=== PATIENT | female | born 1965 | race Caucasian/White ===

== ENCOUNTER 2016-11-01 09:10 | Outpatient (CLI) | payer OTHER ==
[2016-07-30 20:04] VITALS: BP 118/84
[2016-11-01 10:01] LABS: eGFR (African) > 60; eGFR (Non-African) > 60
== END 2016-11-01 09:11 ==
LOC: LAB 09:10
PROVIDERS: ATTEND Family Medicine
DX: E78.2 Mixed hyperlipidemia (principal); E03.9 Hypothyroidism, unspecified
CPT/HCPCS: 36415; 80053; 80061; 84443

== ENCOUNTER 2017-05-02 10:34 | Outpatient (CLI) | payer OTHER ==
[2016-07-30 20:04] VITALS: BP 118/84
[2017-05-02 11:08] LABS: BASOPHILS % 1.1 (0.0-1.5); MEAN CORPUSCULAR HEMOGLOBIN 30.4 pg (28.0-34.0); MEAN CORPUSCULAR VOLUME 86.3 fl (80.0-100.0)
[2017-05-02 11:44] LABS: EOSINOPHILS % 0.7 % (0.0-6.8); NEUTROPHILS # 3.1 # k/uL (1.4-7.7)
[2017-05-02 11:52] LABS: eGFR (African) > 60; eGFR (Non-African) > 60
== END 2017-05-02 10:35 ==
LOC: LAB 10:34
PROVIDERS: ATTEND Family Medicine
DX: R10.84 Generalized abdominal pain (principal)
CPT/HCPCS: 36415; 80053; 85025

== ENCOUNTER 2017-05-05 07:20 | Outpatient (CLI) | payer OTHER ==
[2016-07-30 20:04] VITALS: BP 118/84
--- NOTE | 2017-05-05 09:45 | Diagnostic Imaging Report ---
ASHISH MANZANO - TOYIN [facility] [address] [facility] [address] [address] Report Submission Date: May 05, 2017 9:28:02 AM CDT Patient Study Name: SOLOMON SANCHEZ Date: May 05, 2017 9:02:43 AM CDT Modality Type: CT\SR Gender: F Description: CT ABD & PELVIS W/ CON : 61 Institution: [facility] Physician: ASHISH MANZANO - TOYIN CT ABD & PELVIS W/ CON History: Generalized abdominal pain and vomiting Technique: Transaxial computed tomographic images of the abdomen and pelvis were obtained following administration of intravenous contrast according to standard protocol. Findings: The lung bases are clear. Heart size normal. Small hiatal hernia is present. The liver is normal in density. The gallbladder is absent. The pancreas spleen adrenals and bilateral kidneys are normal. No bowel wall thickening or dilation present. The appendix is absent. Vascular structures are normal. No adenopathy present. The bladder normal. There is no free fluid. The osseous structures are unremarkable. Impression: 1. No bowel wall thickening or dilation. 2. Status post cholecystectomy and appendectomy. 3. Small hiatal hernia. Electronically signed on May 05, 2017 9:28:02 AM CDT by: Jonh EVANS
== END 2017-05-05 07:21 ==
LOC: RAD 07:20
PROVIDERS: ATTEND Family Medicine
DX: R10.84 Generalized abdominal pain (principal)
CPT/HCPCS: 74177; Q9966

== ENCOUNTER 2017-06-12 15:30 | Emergency (ER) | payer OTHER ==
--- NOTE | 2017-06-12 15:35 | ED Physician Documentation ---
Upper Respiratory Symptoms - HISTORIAN Historian: patient - HPI Stated Complaint: cough Chief Complaint: Cough/ Upper Respiratory Onset: days ago (4) Duration: constant Context: denies: recent foreign travel, insect bite(s), tick(s), multiple patients Severity: mild Associated Symptoms: fever, chills, sweating, earache, chest pain (with cough ) Worsened by Deep Breath: Yes Further Comments: no - ROS CONST/EYES: weakness CVS/RESP: none LYMPH: denies: rash NEURO/PSYCH: denies: fainting, dizziness MS/SKIN: denies: joint pain - PAST HX Lung Disease: other (Depression, thyroid, GERD, ) PE Risk Factors: none Other History: other Surgeries/Procedures: other (Hysterectomy ) Immunizations: referred to PCP Allergies/Adverse Reactions: Allergies Allergy/AdvReac Type Severity Reaction Status Date / Time Penicillins Allergy Unknown Verified 07/30/16 20:20 Home Medications: Ambulatory Orders Medication Instructions Recorded Albuterol Sulfate [Ventolin HFN] 2.5 mg NEB QID PRN #30 ampul.neb 06/12/17 Duloxetine HCl [Duloxetine HCl] 20 mg PO DAILY 06/12/17 Escitalopram Oxalate [Lexapro] 20 mg PO DAILY 06/12/17 Estradiol [Estradiol] 2 mg PO DAILY 06/12/17 Gemfibrozil [Lopid] 600 mg PO DAILY 06/12/17 Levothyroxine Sodium [Synthroid] 100 mcg PO 0700 06/12/17 - SOCIAL HX Smoking History: non-smoker Alcohol Use: none Drug Use: none - FAMILY HX Family History: none - VITAL SIGNS Vital Signs: Vital Signs Temp Pulse Resp BP Pulse Ox 98.9 F 78 16 120/66 99 06/12/17 15:30 06/12/17 17:55 06/12/17 17:55 06/12/17 17:55 06/12/17 17:55 - REVIEWED ASSESSMENTS Nursing Assessment Reviewed: Yes Vitals Reviewed: Yes Progress - Progress Progress: Discussed labs are normal CXR is normal Continue OTC meds She does not feel she needs RX for cough syrup or allergy meds She will continue her nebs ED Results Lab/Radiology - Lab Results Lab Results: Lab Results 06/12/17 06/12/17 15:58 15:58 WBC 8.40 K/ul K/ul (4.00-12.00) RBC 4.18 M/ul M/ul (3.90-5.20) Hgb 12.4 g/dL g/dL (12.0-16.0) Hct 37.3 % % (34.5-46.5) MCV 89.2 fl fl (80.0-100.0) MCH 29.6 pg pg (28.0-34.0) MCHC 33.1 g/dL g/dL (30.0-36.0) RDW 12.6 % % (11.3-14.3) Plt Count 356 K/mm3 K/mm3 (130-400) Neut % (Auto) 76.0 % % (39.0-79.0) Lymph % (Auto) 17.9 % % (16.0-50.0) [place] % (Auto) 4.0 % % (0.0-11.0) Eos % (Auto) 0.5 % % (0.0-6.8) Baso % (Auto) 0.4 (0.0-1.5) Neut # (Auto) 6.4 # k/uL # k/uL (1.4-7.7) Lymph # (Auto) 1.5 # k/uL # k/uL (0.6-4.0) [place] # (Auto) 0.3 # k/uL # k/uL (0.0-0.9) Eos # (Auto) 0.0 # k/uL # k/uL (0.0-0.6) Baso # (Auto) 0.0 # k/uL # k/uL (0.0-0.5) Reactive Lymphs % 1.2 % % (0.0-5.0) Reactive Lymphs # 0.1 # k/uL # k/uL (0.0-0.8) Sodium 135 mmol/L L mmol/L (136-145) Potassium 3.6 mmol/L mmol/L (3.5-5.1) Chloride 101 mmol/L mmol/L (98-107) Carbon Dioxide 27 mmol/L mmol/L (22-30) BUN 15 mg/dL mg/dL (7-17) Creatinine 1.10 mg/dL H mg/dL (0.52-1.04) Estimated Creat Clear 89 Est GFR ( Amer) > 60 (60 - ) Est GFR (Non-Af Amer) > 60 (60 - ) Glucose 89 mg/dL mg/dL (74-106) Calcium 8.7 mg/dL mg/dL (8.4-10.2) Total Bilirubin 0.3 mg/dL mg/dL (0.2-1.3) AST 16 U/L U/L (15-46) ALT 24 U/L U/L (13-69) Alkaline Phosphatase 81 U/L U/L (38-126) Total Protein 7.3 g/dL g/dL (6.3-8.2) Albumin 3.9 g/dL g/dL (3.5-5.0) - Radiology Radiology Impressions: Examination: PA and lateral chest. History: Evaluate lung ryder. Comparison exam: None provided Findings: PA lateral chest demonstrate a normal cardiac and mediastinal silhouette. No focal infiltrate. No blunting of the costophrenic margins. Osseous structures are appropriate for age. Impression: No acute pulmonary process. Electronically signed on Jun 12, 2017 4:47:46 PM MORGUE LIBRARIAN by: Loco Oglesby - Orders Orders: ED Orders Category Date Time Status Place IV Lock 1T Care 06/12/17 15:46 Active CHEST P.A.&LAT 2 VIEWS [RAD] Stat Exams 06/12/17 Completed CBC/PLATELET/DIFF Routine Lab 06/12/17 15:58 Completed CMP [CMP] Routine Lab 06/12/17 15:58 Completed INFLUENZA A&B Urgent Lab 06/12/17 15:46 Ordered Rapid Strep [GRP A STREP SCREEN] Urgent Lab 06/12/17 Ordered 0.9 % Sodium Chloride [Normal Saline] 1,000 ml Med 06/12/17 16:52 Discontinued IV Q1H Labs normal Slightly low NA Upper Respiratory Symptoms - EXAM General Appearance: no acute distress, alert EENT: eyes nml inspection, nml ENT inspection Respiratory: wheezes Abdomen: non-tender, nml bowel sounds CVS: reg rate & rhythm, heart sounds normal, equal pulses, no murmur Skin: color nml, no rash, warm,dry Extremities: non-tender Neuro/Psych: oriented x3, neuro intact, mood/affect nml Discharge Clincal Impression: URI (upper respiratory infection) Qualifiers: URI type: unspecified viral URI Qualified Code(s): J06.9 - Acute upper respiratory infection, unspecified Prescriptions: Albuterol Sulfate [Ventolin HFN] 2.5 mg NEB QID PRN #30 ampul.neb PRN Reason: Cough Referrals: Diamond Liz MD [Primary Care Provider] - 2 Days Condition: Stable Disposition: 01 HOME, SELF-CARE Decision to Admit: NO Date of Decison to Admit: 06/12/17 Decision Time: 17:46
[2017-06-12 16:37] LABS: eGFR (African) > 60; eGFR (Non-African) > 60
[2017-06-12 16:51] LABS: BASOPHILS % 0.4 (0.0-1.5); EOSINOPHILS % 0.5 % (0.0-6.8); MEAN CORPUSCULAR HEMOGLOBIN 29.6 pg (28.0-34.0); MEAN CORPUSCULAR VOLUME 89.2 fl (80.0-100.0); NEUTROPHILS # 6.4 # k/uL (1.4-7.7)
[2017-06-12] MEDS: 0.9 % SODIUM CHLORIDE 1,000 ML IV ONE (17:00)
--- NOTE | 2017-06-12 17:47 | Diagnostic Imaging Report ---
LEXII LOREDO [facility] [address] [facility] [address] [place], [place]. [address] Report Submission Date: Jun 12, 2017 4:47:46 PM CYTOTECHNOLOGIST/CYTOLOGY SUPERVISOR Patient Study Name: SOLOMON SANCHEZ Date: Jun 12, 2017 4:16:25 PM CYTOTECHNOLOGIST/CYTOLOGY SUPERVISOR Modality Type: CR Gender: F Description: CHEST : 61 Institution: [facility] Physician: LEXII LOREDO Examination: PA and lateral chest. History: Evaluate lung ryder. Comparison exam: None provided Findings: PA lateral chest demonstrate a normal cardiac and mediastinal silhouette. No focal infiltrate. No blunting of the costophrenic margins. Osseous structures are appropriate for age. Impression: No acute pulmonary process. Electronically signed on Jun 12, 2017 4:47:46 PM CYTOTECHNOLOGIST/CYTOLOGY SUPERVISOR by: Loco EVANS
[2017-06-12 17:56] VITALS: BP 120/66
== END 2017-06-12 17:55 | disposition home or self-care (01) ==
LOC: ED 15:30
DX: J06.9 Acute upper respiratory infection, unspecified (principal)
CPT/HCPCS: 71020; 80053; 85025; J7030; 87070; 87400; 87880; 96360; 99283; S1016

== ENCOUNTER 2017-12-18 04:06 | Emergency (ER) | payer OTHER ==
--- NOTE | 2017-12-18 04:20 | ED Physician Documentation ---
Fall - HISTORIAN Historian: patient - HPI Stated Complaint: fall Chief Complaint: Fall Onset: just prior to arrival Where: home Context: slipped (in the mud ) r: moderate Associated Symptoms:: no loss of consciousness Location of Pain/Injury: neck (fells she pulled her neck with the fall ), lower extremity (fell directly on both knees ) Injury to Right Extremity: knee Injury to Left Extremity: knee, ankle, foot Further Comments: yes (she reports she was going to check on her neighbors house in the rain and her foot slipped in the mud and she fell directely down on her knees. She states she had her left knee replaced and she is worried she "messed it up" . states he pain is 6 /10 and she has some pain in her right arm from where she had to use it to prop herself up and get up. She feels her neck is sore from the twisting movement of the fall. she did not injure her neck or head in the fall. Denies any loss of control of bowel or bladder left foot and ankle are sore from fall she is not sure if she hit this area when she had the fall or not. She has not had anything OTC for pain) - ROS CONST: no problems NEURO: denies: dizziness MS/SKIN/LYMPH: denies: weakness GI/: denies: problems urinating - PAST HX Past History: other (hyperlipidemia, depression, bladder, ) Immunizations: UTD Allergies/Adverse Reactions: Allergies Allergy/AdvReac Type Severity Reaction Status Date / Time Penicillins Allergy Unknown Verified 12/18/17 04:39 Home Medications: Ambulatory Orders Medication Instructions Recorded Albuterol Sulfate [Ventolin HFN] 2.5 mg NEB QID PRN #30 ampul.neb 06/12/17 Estradiol [Estradiol] 2 mg PO DAILY 06/12/17 Gemfibrozil [Lopid] 600 mg PO DAILY 06/12/17 Levothyroxine Sodium [Synthroid] 100 mcg PO 0700 06/12/17 - SOCIAL HX Smoking History: non-smoker Alcohol Use: none Drug Use: none - FAMILY HX Family History: none - VITAL SIGNS Vital Signs: Vital Signs Temp Pulse Resp BP Pulse Ox 120/66 06/12/17 17:55 - REVIEWED ASSESSMENTS Nursing Assessment Reviewed: Yes Vitals Reviewed: Yes Progress - Progress Progress: 0620: Patient aware waiting on xray results. Reports pain is improved DG Fall Physical Exam - Physical Exam General Appearance: no acute distress, alert Head: non-tender, no swelling, no obvious injury Neck: non-tender, painless ROM Eye: JORGE Resp/CVS: chest non-tender, breath sounds nml, no resp. distress, heart sounds nml Abdomen: soft, normal bowel sounds, no distension, non-tender Neuro: oriented x3, CN's nml as tested, sensation nml, motor nml, mood/affect nml, mixer operator nml, reflexes nml, mixer operator symmetrical Skin: color nml, no rash, warm, other (mud up entire pant leg ) Extremities: atraumatic, hips non-tender, no pedal edema, nml color/temp Joint: painful (both knees and left ankle/foot . No swelling. No bruise. Pulses + Cap refill + Normal ROM although painful ROM ) - Grady Coma Score Eyes Open: Spontaneous Speech: Oriented Motor: Obeys Commands Discharge Clincal Impression: Pain Fall Qualifiers: Encounter type: initial encounter Qualified Code(s): W19.XXXA - Unspecified fall, initial encounter Referrals: Diamond Liz MD [Primary Care Provider] - 2 Days Comments: 1. Ice/Rest 2. Follow up with PCP in 2-4 days for pain 3. Tramodol 50 mg Take 1 by mouth every 8 hours as needed for pain 4. Return to ER for increasing pain or swelling or other concerns Condition: Stable Disposition: 01 HOME, SELF-CARE Decision to Admit: NO Date of Decison to Admit: 12/18/17 Decision Time: 06:54
[2017-12-18] MEDS: KETOROLAC TROMETHAMINE 60 MG/2 ML VIAL IM ONE (04:39)
--- NOTE | 2017-12-18 06:55 | Diagnostic Imaging Report ---
LEXII LOREDO [facility] [address] [facility] [address] [place], [place]. [address] Report Submission Date: December 18, 2017 6:51:03 AM CDT Patient Study Name: SOLOMON SANCHEZ Date: December 18, 2017 5:59:02 AM CDT Modality Type: DX Gender: F Description: LOWER EXTREMITY : 61 Institution: [place] [facility] Physician: LEXII LOREDO Bilateral knees, AP, lateral and sunrise views History: Fpe the patient is status post left knee arthroplasty. The prosthesis appears in good position. There is no fracture, dislocation or abnormal bone destruction. Joint space narrowing is noted in the medial, lateral patellofemoral compartments of the right knee. There is spur formation at the right distal femur, proximal tibia and patella. Impression: Left knee arthroplasty. Right knee osteoarthritis. Electronically signed on December 18, 2017 6:51:03 AM CDT by: Bryce EVANS
--- NOTE | 2017-12-18 06:56 | Diagnostic Imaging Report ---
LEXII LOREDO [facility] [address] [facility] [address] [address] Report Submission Date: December 18, 2017 6:51:53 AM CDT Patient Study Name: SOLOMON SANCHEZ Date: December 18, 2017 6:02:20 AM CDT Modality Type: DX Gender: F Description: LOWER EXTREMITY : 61 Institution: [facility] Physician: LEXII LOREDO Left foot, 3 views History: Fall injury, pain Findings: No fracture, dislocation or abnormal bone production or destruction is identified. Plantar calcaneal spur is present. Impression: No acute abnormality. Electronically signed on December 18, 2017 6:51:53 AM CDT by: Bryce EVANS
--- NOTE | 2017-12-18 06:57 | Diagnostic Imaging Report ---
LEXII LOREDO [facility] [address] [facility] [address] [address] Report Submission Date: December 18, 2017 6:52:58 AM CDT Patient Study Name: SOLOMON SANCHEZ Date: December 18, 2017 5:08:10 AM CDT Modality Type: DX Gender: F Description: LOWER EXTREMITY : 61 Institution: [place] [facility] Physician: LEXII LOREDO Left ankle, 3 views History: Fall, injury, pain Findings: No fracture, dislocation or abnormal bone production or destruction is identified. Plantar calcaneal spur is present. Impression: No acute abnormality. Electronically signed on December 18, 2017 6:52:58 AM CDT by: Bryce EVANS
[2017-12-18 07:02] VITALS: BP 122/57
== END 2017-12-18 07:00 | disposition home or self-care (01) ==
LOC: ED 04:06
DX: M25.572 Pain in left ankle and joints of left foot (principal); M79.672 Pain in left foot; M54.2 Cervicalgia; M25.561 Pain in right knee; M25.562 Pain in left knee; W19.XXXA Unspecified fall, initial encounter; Y92.9 Unspecified place or not applicable; Y93.9 Activity, unspecified; Y99.9 Unspecified external cause status
CPT/HCPCS: 73562; 73610; 73630; J1885; 96372; 99284

== ENCOUNTER 2018-08-10 08:46 | Outpatient (CLI) | payer OTHER ==
[2018-08-10 09:17] LABS: eGFR (Non-African) > 60
== END 2018-08-10 09:05 ==
LOC: LAB 08:46
PROVIDERS: ATTEND Family Medicine
DX: E78.2 Mixed hyperlipidemia (principal); E03.9 Hypothyroidism, unspecified
CPT/HCPCS: 36415; 80053; 80061; 84443

== ENCOUNTER 2018-09-25 08:50 | Day surgery (SDC) | payer OTHER ==
[~2018-09-25 08:50] MED LIST: LACTATED RINGERS 1,000 ML IV.SOLN IV ONE; PROPOFOL 200 MG/20 ML VIAL IV ONE
--- NOTE | 2018-09-25 14:27 | GI Report ---
REFERRING PHYSICIAN: Dr. Diamond Liz WIND ENERGY ENGINEER: Quinn Richards MD PROCEDURE MEDICATION: Propofol as per anesthesia. INDICATIONS: Patient is 53 and referred for a screening. Her last colonoscopy was about 12 years ago. Some altered bowel habits. She has had a previous cholecystectomy, hysterectomy, appendectomy, and tubal ligations, so 4 abdominal surgeries. PROCEDURE PERFORMED: Colonoscopy. PROCEDURE: An Olympus video colonoscope was advanced to the rectum. An extremely atonic redundant colon. It took a lot of maneuvering to finally slowly get through the sigmoid colon and we did finally reach the cecum with some nurse compression. The cecum, ascending colon, and transverse colon with no obvious intraluminal lesions noted. At the descending colon, particularly in the sigmoid, a lot of redundancy, maybe external adhesions. No obvious intraluminal lesions were noted. Retroflexion of the rectum was normal. Patient tolerated the procedure well. FINDINGS: 1. A very atonic redundant colon. 2. History of multiple abdominal surgeries. RECOMMENDATIONS: 1. Would add Benefiber, Metamucil, or fiber supplement daily in the evening. It may help regulate stools better after a cholecystectomy. 2. Consider re-looking at her colon in 10 years, sooner if clinically indicated. cc: Dr. Diamond EVANS
== END 2018-09-25 12:55 | disposition home or self-care (01) ==
LOC: OPSURG 08:50
PROVIDERS: ATTEND Internal Medicine Gastroenterology
DX: Z12.11 Encounter for screening for malignant neoplasm of colon (principal); K59.8 Other specified functional intestinal disorders; Z98.890 Other specified postprocedural states
CPT/HCPCS: 45378; J2704; J7120; S1016

== ENCOUNTER 2018-09-28 15:55 | Emergency (ER) | payer OTHER ==
[2018-09-28] MEDS ORDERED: 0.9 % SODIUM CHLORIDE 1,000 ML IV ONE (16:26)
[2018-09-28] MEDS ORDERED: ONDANSETRON HCL/PF 4 MG/ 2ML VIAL IVP ONE ×2 (16:26→18:08)
[2018-09-28 16:40] LABS: BASOPHILS % 0.5 (0.0-1.5); MEAN CORPUSCULAR HEMOGLOBIN 30.2 pg (28.0-34.0); MONOCYTES % 3.8 % (0.0-11.0); NEUTROPHILS # 7.8 # k/uL (1.4-7.7)
[2018-09-28 16:46] LABS: eGFR (Non-African) > 60
--- NOTE | 2018-09-28 17:28 | ED Physician Documentation ---
Abdominal Pain - HISTORIAN Historian: patient - HPI Stated Complaint: abdominal pain Chief Complaint: Abdominal Pain Onset: days ago Timing: worse Context: denies: out of country travel, bad food, recent trauma Severity: severe Quality: pain Associated Symptoms: chills, nausea, vomiting. denies: bloody stools Exacerbated by: food Relieved by: nothing Further Comments: yes (53 year old female patient presents with complaints of generalized abdominal pain since Tuesday after her colonoscopy by Dr Sol at [facility]. Patient reports she cannot keep down fluids or solids today, c/o chills, BM today - formed. Report pain worse in Right lateral abdomen, states she cannot pass any gas.) - ROS CONST: no problems GI/: constipation CVS/RESP: none EYES/ENT: none MS/SKIN/LYMPH: none NEURO/PSYCH: none - SOCIAL HX Smoking History: non-smoker - FAMILY HX Family History: denies: none - PAST HX Past History: GERD, other (Hypothyroidism, HLD) Ischemic Bowel Risk Factors: none Other History: none Home Medications: Ambulatory Orders Medication Instructions Recorded Albuterol Sulfate [Ventolin HFN] 2.5 mg NEB QID PRN #30 ampul.neb 06/12/17 Estradiol 2 mg PO DAILY 06/12/17 Gemfibrozil [Lopid] 600 mg PO DAILY 06/12/17 Ondansetron HCl Rapdis [Zofran Odt] 4 mg PO Q6 PRN #30 tab 09/28/18 Allergies/Adverse Reactions: Allergies Allergy/AdvReac Type Severity Reaction Status Date / Time Penicillins Allergy Unknown Verified 09/28/18 16:27 codeine Allergy Verified 09/28/18 16:27 - VITAL SIGNS Vital Signs: Vital Signs Temp Pulse Resp BP Pulse Ox 98.5 F 67 20 146/61 97 09/28/18 15:55 09/28/18 18:36 09/28/18 18:36 09/28/18 18:36 09/28/18 18:36 - REVIEWED ASSESSMENTS Nursing Assessment Reviewed: Yes Vitals Reviewed: Yes Progress - Progress Progress: Colonoscopy report from Tuesday reviewed. ED Results Lab/Radiology - Lab Results Lab Results: Lab Results 09/28/18 09/28/18 16:10 16:10 WBC 10.70 K/ul K/ul (4.00-12.00) RBC 4.36 M/ul M/ul (3.90-5.20) Hgb 13.2 g/dL g/dL (12.0-16.0) Hct 39.3 % % (34.5-46.5) MCV 90.0 fl fl (80.0-100.0) MCH 30.2 pg pg (28.0-34.0) MCHC 33.5 g/dL g/dL (30.0-36.0) RDW 13.3 % % (11.3-14.3) Plt Count 343 K/mm3 K/mm3 (130-400) Neut % (Auto) 73.3 % % (39.0-79.0) Lymph % (Auto) 21.4 % % (16.0-50.0) [place] % (Auto) 3.8 % % (0.0-11.0) Eos % (Auto) 1.0 % % (0.0-6.8) Baso % (Auto) 0.5 (0.0-1.5) Neut # (Auto) 7.8 # k/uL H # k/uL (1.4-7.7) Lymph # (Auto) 2.3 # k/uL # k/uL (0.6-4.0) [place] # (Auto) 0.4 # k/uL # k/uL (0.0-0.9) Eos # (Auto) 0.1 # k/uL # k/uL (0.0-0.6) Baso # (Auto) 0.1 # k/uL # k/uL (0.0-0.5) Sodium 142 mmol/L mmol/L (136-145) Potassium 4.2 mmol/L mmol/L (3.5-5.1) Chloride 107 mmol/L mmol/L (98-107) Carbon Dioxide 22 mmol/L mmol/L (22-30) BUN 13 mg/dL mg/dL (7-17) Creatinine 0.87 mg/dL mg/dL (0.52-1.04) Estimated Creat Clear 113 Est GFR ( Amer) > 60 (60 - ) Est GFR (Non-Af Amer) > 60 (60 - ) Glucose 97 mg/dL mg/dL (74-106) Lactate 1.4 U/L U/L (0.7-2.1) Calcium 9.0 mg/dL mg/dL (8.4-10.2) Total Bilirubin 1.0 mg/dL mg/dL (0.2-1.3) AST 22 U/L U/L (15-46) ALT 20 U/L U/L (13-69) Alkaline Phosphatase 76 U/L U/L (38-126) Total Protein 7.4 g/dL g/dL (6.3-8.2) Albumin 4.6 g/dL g/dL (3.5-5.0) Lipase 68 U/L U/L (23-300) - Radiology Radiology Impressions: EXAMINATION: CT ABD PELVIS W/ CON HISTORY: CT A/P W/ CONTRAST, GENERALIZED ABD PAIN AND N/V THIS AM. PT STATES COLONOSCOPY DONE ON TUESDAY TECHNIQUE: CT of the abdomen and pelvis was performed with contrast according to standard protocol. COMPARISON: 05/05/2017 FINDINGS: The aorta is normal in course and caliber. The visible lung bases are clear. The heart size is normal without pericardial effusion. The liver enhances homogeneously. The gallbladder is absent. The intrahepatic and extrahepatic bile ducts are nondilated. The spleen enhances homogeneously without focal lesion. The pancreas and adrenal glands are normal. The kidneys enhance symmetrically. There is no evidence of renal calculus or hydronephrosis. The distal esophagus and stomach appear normal. There is diverticulosis. The small bowel and colon are normal in caliber without evidence of wall thickening or obstruction. The appendix is surgically absent. No free air or free fluid is identified within the abdomen. There is no abdominal lymphadenopathy. The urinary bladder is distended with fluid and appears normal. The uterus is absent. No free fluid is seen within the pelvis. Bone windows demonstrate no suspicious lytic or blastic lesions. The visible osseous structures are intact. IMPRESSION: No acute process identified in the abdomen or pelvis. Specifically there is no evidence of pneumoperitoneum to suggest colonic perforation in the setting of recent colonoscopy. Electronically signed on Sep 28, 2018 5:54:14 PM BODY ENGINEER by: Bandar Richardson - Orders Orders: ED Orders Category Date Time Status Continuous EKG monitoring Q30M Care 09/28/18 16:26 Active Continuous Pulse Oximetry Q30M Care 09/28/18 16:[address] IV Lock 1T Care 09/28/18 16:[address] ABD & PELVIS W/ CON Stat Exams 09/28/18 Completed CBC/PLATELET/DIFF Stat Lab 09/28/18 16:10 Completed CMP Stat Lab 09/28/18 16:10 Completed LACTATE Stat Lab 09/28/18 16:10 Completed LIPASE Stat Lab 09/28/18 16:10 Completed UA W/MICRO IF INDICATED Stat Lab 09/28/18 16:26 Ordered 0.9 % Sodium Chloride [Normal Saline] 1,000 ml Med 09/28/18 16:26 Discontinued IV NOW Ondansetron HCl/Pf [Zofran] Med 09/28/18 16:26 Discontinued 4 mg IVP NOW ONE Ondansetron HCl/Pf [Zofran] Med 09/28/18 18:08 Discontinued 4 mg IVP NOW ONE Simethicone [Gas-X] Med 09/28/18 18:04 Discontinued 160 mg PO NOW ONE Abdominal Pain Physical Exam - Physical Exam General Appearance: moderate distress EENT: eye inspection normal, JORGE RESPIRATORY: no resp distress, chest non-tender, breath sounds normal CVS: reg rate & rhythm, heart sounds normal, equal pulses, no murmur, no gallop, PMI nml, no JVD, no friction rub, 24 ABDOMEN: no abdominal bruit, tenderness (generalized; worse on right lateral mid-quad), abnormal bowel sounds, decreased BS, distended SKIN: warm/dry, pallor EXTREMITIES: non-tender, normal range of motion, no evidence of injury, no edema, J, SENIOR TECH MANUFACTURING ENGINEERING NEURO: oriented X3, CN's nml as tested, motor nml, sensation nml Vital Signs: Vital Signs Temp Pulse Resp BP Pulse Ox 98.5 F 67 20 146/61 97 09/28/18 15:55 09/28/18 18:36 09/28/18 18:36 09/28/18 18:36 09/28/18 18:36 Discharge Clincal Impression: Nausea & vomiting Qualifiers: Vomiting type: unspecified Vomiting Intractability: non-intractable Qualified Code(s): R11.2 - Nausea with vomiting, unspecified Abdominal pain Qualifiers: Abdominal location: right lower quadrant Qualified Code(s): R10.31 - Right lower quadrant pain Prescriptions: Ondansetron HCl Rapdis [Zofran Odt] 4 mg PO Q6 PRN #30 tab PRN Reason: Nausea / Vomiting Referrals: Diamond iLz MD [Primary Care Provider] - 2 Days Additional Instructions: Diet: Clear liquids Sprite/7-up Juices apple, white grape Gatorade/Powerade Jello Popsicles When tolerating clear liquids, advance to bland/brat diet - such as crackers, rice, Bananas, apples/applesauce or toast Return to the emergency department or call your doctor, if you are having severe abdominal pain, fever >101.0, or if there is blood in the vomit or diarrhea, or you cannot keep down liquids or solid food. Condition: Stable Disposition: 01 HOME, SELF-CARE Decision to Admit: NO Decision Time: 18:10
[2018-09-28] MEDS ORDERED: SIMETHICONE 80 MG TAB.CHEW PO ONE (18:04)
[2018-09-28 18:38] VITALS: BP 146/61
--- NOTE | 2018-09-29 02:06 | Diagnostic Imaging Report ---
SANTIAGO MACHUCA ([employer] SENATOR) - ER [facility] [id number] [facility] [address] [place], [place]. [address] Report Submission Date: Sep 28, 2018 5:54:14 PM [employer] Patient Study Name: SOLOMON SANCHEZ Date: Sep 28, 2018 5:24:50 PM [employer]RIAL [employer]GI[employer] ENGINEER Modality Type: CT\SR Gender: F Description: CT ABD PELVIS W/ CON : 61 Institution: [facility] Physician: SANTIAGO MACHUCA (U.S. SENATOR) - ER EXAMINATION: CT ABD PELVIS W/ CON HISTORY: CT A/P W/ CONTRAST, GENERALIZED ABD PAIN AND N/V THIS AM. PT STATES COLONOSCOPY DONE ON TUESDAY TECHNIQUE: CT of the abdomen and pelvis was performed with contrast according to standard protocol. COMPARISON: 05/05/2017 FINDINGS: The aorta is normal in course and caliber. The visible lung bases are clear. The heart size is normal without pericardial effusion. The liver enhances homogeneously. The gallbladder is absent. The intrahepatic and extrahepatic bile ducts are nondilated. The spleen enhances homogeneously without focal lesion. The pancreas and adrenal glands are normal. The kidneys enhance symmetrically. There is no evidence of renal calculus or hydronephrosis. The distal esophagus and stomach appear normal. There is diverticulosis. The small bowel and colon are normal in caliber without evidence of wall thickening or obstruction. The appendix is surgically absent. No free air or free fluid is identified within the abdomen. There is no abdominal lymphadenopathy. The urinary bladder is distended with fluid and appears normal. The uterus is absent. No free fluid is seen within the pelvis. Bone windows demonstrate no suspicious lytic or blastic lesions. The visible osseous structures are intact. IMPRESSION: No acute process identified in the abdomen or pelvis. Specifically there is no evidence of pneumoperitoneum to suggest colonic perforation in the setting of recent colonoscopy. Electronically signed on Sep 28, 2018 5:54:14 PM INDUSTRIAL [employer]GIENE ENGINEER by: Bandar EVANS
== END 2018-09-28 18:30 | disposition home or self-care (01) ==
LOC: ED 15:55
DX: R11.2 Nausea with vomiting, unspecified (principal); R10.32 Left lower quadrant pain
CPT/HCPCS: 36415; 74177; 80053; 83605; 83690; 85025; 96374; 96376; 99283; 99284; J2405; J7030; Q9967; S1016

== ENCOUNTER 2018-12-19 10:59 | Outpatient (CLI) | payer OTHER | END 2018-12-19 11:02 | LOC: LAB 10:59 | PROVIDERS: ATTEND Family Medicine | DX: M79.671 Pain in right foot (principal); M77.31 Calcaneal spur, right foot; M72.2 Plantar fascial fibromatosis; M21.611 Bunion of right foot; M21.621 Bunionette of right foot; M79.672 Pain in left foot; M77.32 Calcaneal spur, left foot; M21.622 Bunionette of left foot; M21.612 Bunion of left foot | CPT/HCPCS: 36415; 80048 ==